=== PATIENT | male | born 1975 | race Caucasian/White ===

== ENCOUNTER 2017-11-28 16:00 | Emergency (ER) | payer BC, OTHER ==
[~2017-11-28] VITALS: Ht 193 cm; Wt 163.2 kg
[~2017-11-28 16:00] MED LIST: FLUT0.0529 NAE
[2017-11-28 16:02] VITALS: TEMP 36.8; Ht 193 cm; Wt 163.2 kg
[2017-11-28] MEDS ORDERED: IBUPROFEN 800 MG TAB PO STA (16:16)
[2017-11-28] MEDS ORDERED: ALBUTEROL HFA 8 GM INHALER INH STA (16:16)
--- NOTE | 2017-11-28 16:25 | EMERGENCY ROOM VISIT NOTE ---
History Report prepared by Hieu: Gal Guallpa Under the Supervision of: Dr. Kamari Dhaliwal M.D. First contact with patient: 16:05 Chief Complaint: FLU LIKE SX Stated Complaint: COUGH,SORE THROAT,L EAR PAIN,HOT/COLD History of Present Illness The patient is a 42 year old male who presents to the Emergency Room with complaints of a worsening cough beginning seven days ago. The patient states he wakes up in the morning and will cough up mucus. He reports after coughing a few times, it becomes dry, and it remains dry throughout the day. The patient notes his throat becomes sore from coughing. He states he can eat, drink, and talk without increasing his throat discomfort. The patient reports he lost his voice, and it is difficult to talk. He notes he is able to swallow without difficulty. The patient states he developed left ear pain and a headache yesterday. He reports he is also warm. 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 He states he has tried Theraflu, NightQuil, and DayQuil without relief. The patient reports his last dose of DayQuil was this morning. He notes he typically gets similar symptoms every year. The patient states he occasionally uses alcohol, and he chews tobacco. He reports he has a history of diabetes and hypertension. The patient notes he does not take insulin for his diabetes. He denies a history of smoking and drug use. The patient also denies abdominal pain , nausea, vomiting, swelling in his legs, and difficulty swallowing. Source of History: patient Onset: seven days ago Quality: other (cough) Timing: worsening Modifying Factors (Relieving): other (nothing) Associated Symptoms: + headache, No nausea, No vomiting, No abdominal pain Note: Associated symptoms: left ear pain, warm, difficulty talking Denies: swelling in his legs, difficultly swallowing Review of Systems See HPI for pertinent positives and negatives. A total of ten systems were reviewed and were otherwise negative. Past Medical & Surgical Medical Problems: (1) ASTHMA, UNSPECIFIED (2) HX OF PAST NONCOMPLIANCE (3) HYPERTENSION NOS (4) MORBID OBESITY (5) PERSONAL HISTORY OF PEPTIC ULCER DISEASE (6) PERSONAL HISTORY OF URINARY CALCULI (7) ROTATOR CUFF SYND NOS (8) SPRAIN SHOULDER/ARM NEC (9) TOBACCO USE DISORDER Family History FH: HTN (hypertension) FH: diabetes mellitus FH: heart disease Social History Smoking Status: Never Smoker Marital Status: Occupation Status: employed Current/Historical Medications Scheduled Azithromycin (Zithromax), 0 PO DAILY Meloxicam (Meloxicam), 1 TAB PO DAILY Metformin Hcl (Glucophage), 500 MG PO BID Metoprolol Succ (Toprol Xl) (Toprol-Xl), 25 MG PO DAILY Scheduled PRN Ibuprofen Tab (Motrin), 800 MG PO Q8H PRN for Pain Allergies Coded Allergies: Meperidine (Verified Adverse Reaction, Intermediate, CAUSES AGITATION, 11/28) Physical Exam Vital Signs Date Time Temp Pulse Resp B/P (MAP) Pulse Ox O2 Delivery O2 Flow Rate FiO2 11/28/17 16:02 36.8 86 18 171/115 93 Room Air Physical Exam GENERAL: Awake, alert, well-appearing, in no distress HENT: Normocephalic, atraumatic. Oropharynx unremarkable. Mucus membranes dry. EYES: Normal conjunctiva. Sclera non-icteric. NECK: Supple. No nuchal rigidity. FROM. No JVD. RESPIRATORY: Clear to auscultation. CARDIAC: Regular rate, normal rhythm. Extremities warm and well perfused. Pulses equal. ABDOMEN: Soft, non-distended. No tenderness to palpation. No rebound or guarding. No masses. RECTAL: Deferred. MUSCULOSKELETAL: Chest examination reveals no tenderness. The back is symmetrical on inspection without obvious abnormality. There is no CVA tenderness to palpation. No joint edema. LOWER EXTREMITIES: Calves are equal size bilaterally and non-tender. No edema. No discoloration. NEURO: Normal sensorium. No sensory or motor deficits noted. SKIN: No rash or jaundice noted. Medical Decision & Procedures Medications Administered Medications (Trade) Dose Ordered Sig/Aniceto Route Start Time Stop Time Status Last Admin Dose Admin Ibuprofen (Motrin Tab) 800 mg NOW STAT PO 11/28/17 16:16 11/28/17 16:19 DC 11/28/17 16:30 800 MG Dexamethasone Sodium Phosphate (Dexamethasone Inj Pf) 10 mg NOW ONCE PO 11/28/17 16:30 11/28/17 16:31 DC 11/28/17 16:30 10 MG Albuterol (Ventolin Hfa Inhaler) 2 puffs NOW STAT INH 11/28/17 16:16 4/1/18 16:19 DC 11/28/17 16:29 2 PUFFS ED Course 1609: The patient was evaluated in room B08. A complete history and physical exam was performed. 1656: I reevaluated the patient. Discussed results and discharge instructions: he verbalized understanding and agreement. The patient is ready for discharge. Medical Decision I reviewed the patient's past medical history, medications, and the nursing notes as described above. Differential diagnoses include: laryngitis, pharyngitis, tonsillitis, URI, viral illness, influenza. The patient is a 42-year-old gentleman who presents emergency department with cough and sore throat over the past 7 days per hpi. While the patient is relatively well-appearing in no acute distress, afebrile stable vital signs. On exam the patient has no oral pharyngeal edema or injection. No tongue elevation or trismus. Lungs are clear. TMs clear. Symptoms likely related to viral URI and laryngitis. Patient was given ibuprofen, dexamethasone and albuterol inhaler with some improvement of symptoms in the ED. 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 Findings and plan for follow-up reviewed with patient. Patient agreeable and d/c 'd per discharge instructions. Medication Reconcilliation Current Medication List: was personally reviewed by me Blood Pressure Screening Patient's blood pressure: Elevated blood pressure Blood pressure disposition: Elevated BP felt to be situational Impression Primary Impression: Upper respiratory infection Additional Impression: Laryngitis Scribe Attestation The scribe's documentation has been prepared under my direction and personally reviewed by me in its entirety. I confirm that the note above accurately reflects all work, treatment, procedures, and medical decision making performed by me. Departure Information Dispostion Home / Self-Care Prescriptions Azithromycin (Zithromax) 250 Mg Tab 0 PO DAILY, #5 TAB Take by mouth, 2 tablets on Day 1 and then 1 tablet days 2-5. Prov: Kamari Dhaliwal M.D. 11/28/17 Ibuprofen Tab (MOTRIN) 800 Mg Tab 800 MG PO Q8H Y for Pain for 7 Days, #21 TAB Prov: Kamari Dhaliwal M.D. 11/28/17 Referrals Diane Chang D.O. (PCP) Forms HOME CARE DOCUMENTATION FORM, IMPORTANT VISIT INFORMATION Patient Instructions ED Laryngitis, ED Upper Resp Infec No Abx Tx, My [facility] Additional Instructions Please follow up with your primary care physician in the next 1-3 days for re- evaluation. You likely have a viral upper respiratory infection and laryngitis. Otherwise, your exam did not show signs of an emergent condition at this time. Acetaminophen and ibuprofen (or your meloxicam but not both) for pain and fevers as needed. Saline nasal spray and [id number] Mucinex to help thin and clear mucus. Use your albuterol inhaler 2 puffs every 4 hours for the next 48 hours and then as needed thereafter. If your symptoms do not improve in the next 2-3 days you may fill your prescription for azithromycin and take as directed. You should consider discontinuing your chewing tobacco-use as this can make your symptoms worse. Return to the emergency department for worsening symptoms as described in the accompanying instructions. Problem Qualifiers
[2017-11-28] MEDS ORDERED: MELO7.5T6 PO (16:26)
[2017-11-28] MEDS ORDERED: METO25TA3 PO (16:26)
[2017-11-28] MEDS ORDERED: MBC75 PO (16:26)
[2017-11-28] MEDS ORDERED: GLC/500 PO (16:26)
[2017-11-28] MEDS ORDERED: DEXAMETHASONE **PF** INJ 10 MG/ML VIAL PO ONE (16:30)
[2017-11-28] MEDS ORDERED: IBUP-1451 PO (16:38)
[2017-11-28] MEDS ORDERED: AZIT250T PO (17:03)
[2017-11-28 17:26] VITALS: BP 172/112; PULSE 95; O2SAT 95
== END 2017-11-28 17:29 | disposition home or self-care (01) ==
LOC: C.EDB 16:00
DX: J06.9 Acute upper respiratory infection, unspecified (principal); E11.9 Type 2 diabetes mellitus without complications; Z79.84 Long term (current) use of oral hypoglycemic drugs; I10 Essential (primary) hypertension; J45.909 Unspecified asthma, uncomplicated; E66.01 Morbid (severe) obesity due to excess calories; F17.220 Nicotine dependence, chewing tobacco, uncomplicated; Z91.19 Patient's noncompliance with other medical treatment and regimen; Z88.6 Allergy status to analgesic agent